=== PATIENT | female | born 1960 | race African-American/Black ===

== ENCOUNTER 2016-03-29 10:26 | Day surgery (SDC) | payer OTHER ==
[~2016-03-29] VITALS: Ht 167.6 cm; Wt 72.6 kg
[~2016-03-29 10:26] MED LIST: ALPRAZOLAM0.25 MG PO; ATENOLOL50 MG PO; COLACE50 MG PO; CRESTOR10 MG PO; DIABETA,MICRO1.25 MG PO; GLYBURIDE2.5 MG PO; HYDROCODON-ACE1 EAC7 PO; INDOCIN50 MG PO; IRON325 M1 PO; JANUVIA25 M1 PO; KEFLEX500 MG PO; KLONOPIN0.5 M1 PO; LIBRAX, CLI1 CAPSULE PO; LIPITOR40 MG PO; METFORMIN HCL500 MG PO; MOBIC15 MG PO; MULTIPLE VITAM1 EAC3 PO; NEXIUM40 MG PO; OMEGA 3-6-91200 MG PO; OMEGA-3-FISH O1 EACH PO; OXYCODONE-ACET1 EACH PO; PERCOCET 5/31 TABLET PO; PRISTIQ50 MG PO; SPIRONOLACTONE25 MG PO; SPIRONOLACTONE50 MG PO; STOOL SOFTENER100 MG PO; TRAZODONE HCL100 MG PO; VITAMIN D35000 UNIT PO; XANAX1 MG PO
[2016-03-29 11:16] LABS: POINT-OF-CARE METER ID UU14174212
== END 2016-03-29 12:10 | disposition home or self-care (01) ==
LOC: PAIN 10:26 → SDC 11:15 → PAIN 11:15
PROVIDERS: Anesthesiology Pain Medicine
PROC: 0M9 Bursae and Ligaments, Drainage (ICD-10-PCS; principal; 2016-03-29)
DX: M16.12 Unilateral primary osteoarthritis, left hip (principal); E11.9 Type 2 diabetes mellitus without complications; F41.1 Generalized anxiety disorder; I10 Essential (primary) hypertension
CPT/HCPCS: 82948; J1030; J2250; J3010; S0020

== ENCOUNTER 2016-11-08 15:47 | Emergency (ER) | payer OTHER ==
[~2016-11-08] VITALS: Ht 154.9 cm; Wt 70.4 kg
[2016-11-08 20:35] VITALS: BP 177/96
== END 2016-11-08 20:37 | disposition home or self-care (01) ==
LOC: EME 15:47
PROVIDERS: Nurse Practitioner Family
DX: M79.661 Pain in right lower leg (principal); M79.7 Fibromyalgia; Z85.3 Personal history of malignant neoplasm of breast
CPT/HCPCS: 85379; 93971; 99281; 99283; J3010